=== PATIENT | male | born 1980 | race Caucasian/White ===

== ENCOUNTER 2019-07-12 00:58 | Emergency (ER) | payer OTHER ==
[2019-07-12] MEDS ORDERED: Acetaminophen-Codeine 300-30mg TAB PO STA (01:43)
--- NOTE | 2019-07-12 02:17 | XR ---
EXAM: XR Cervical Spine, 2 or 3 Views CLINICAL HISTORY: ITS.REASON XR Reason: fall TECHNIQUE: Frontal and lateral views of the cervical spine. COMPARISON: No relevant prior studies available. FINDINGS: Vertebrae: No definite fracture. Normal alignment. Disc spaces: Mild disc height loss at the C5-6 and C6-7. Soft tissues: Unremarkable. IMPRESSION: No acute osseous findings.
--- NOTE | 2019-07-12 02:35 | ED ---
General Adult HPI - General Chief complaint: Extremity Injury, Upper Stated complaint: Arm Pain Time Seen by Provider: 07/12/19 01:13 Source: patient Mode of arrival: ambulatory Limitations: no limitations - History of Present Illness Initial comments: Patient is a 39-year-old male presenting to emergency Department with a chief complaint of right arm pain. Patient reports he fell approximately 2 weeks ago when walking down the stairs. Patient denies any head trauma. Patient reports over the last week he has developed a shooting pain that starts near the right trapezius and travels down to the right shoulder along the triceps and the posterior aspect of the right forearm. Patient also reports intermittent tingling but no numbness. Patient has full range of motion in all the joints of her right arm. Patient reports no specific motion or position makes it worse. Patient reports taking [id number] analgesics minimal improvement. - Related Data Allergies Allergy/AdvReac Type Severity Reaction Status Date / Time No Known Allergies Allergy Verified 07/12/19 01:11 Review of Systems ROS Statement: Those systems with pertinent positive or pertinent negative responses have been documented in the HPI. ROS Other: All systems not noted in ROS Statement are negative. Past Medical History Past Medical History: No Reported History History of Any Multi-Drug Resistant Organisms: None Reported Past Surgical History: No Surgical Hx Reported Past Psychological History: No Psychological Hx Reported Smoking Status: Never smoker Past Alcohol Use History: None Reported Past Drug Use History: Marijuana General Exam Limitations: no limitations General appearance: alert, in no apparent distress Head exam: Present: atraumatic, normocephalic, normal inspection Eye exam: Present: normal appearance, PERRL, EOMI Pupils: Present: normal accommodation ENT exam: Present: normal exam, normal oropharynx, mucous membranes moist, TM's normal bilaterally, normal external ear exam Neck exam: Present: normal inspection, full ROM Respiratory exam: Present: normal lung sounds bilaterally Cardiovascular Exam: Present: regular rate, normal rhythm, normal heart sounds Extremities exam: Present: normal inspection, full ROM, normal capillary refill, other (+2 ulnar and radial pulses bilaterally. Right upper extremity neurovascularly intact.). Absent: tenderness Back exam: Present: normal inspection, full ROM Neurological exam: Present: alert, oriented X3 Psychiatric exam: Present: normal affect, normal mood Skin exam: Present: warm, intact, normal color Course Vital Signs 07/12/19 01:10 Temperature 98.4 F Pulse Rate 86 Respiratory 20 Rate Blood Pressure 142/87 O2 Sat by Pulse 99 Oximetry Medical Decision Making - Medical Decision Making Patient is a 39-year-old male presenting to the emergency department with a chief complaint of right arm pain. Patient reports the pain began approximately one week ago and he thinks it is due to a fall that took place approximately 2 weeks ago when he was walking on the stairs. Patient had no head trauma. Patient has numbness and tingling that starts at the right trapezius and radiates distally along the shoulder triceps in the posterior aspect of her right forearm. Patient has full range of motion and is neurovascularly intact in the right upper extremity. Cervical x-rays unremarkable. I suspect the patient to have cervical radiculopathy which is causing his symptoms. Patient advised to follow with orthopedics if symptoms are not improved. Patient will be given a Tylenol 3 starter pack. Patient advised not to drive or operate heavy machinery when taking the medication. Strict return parameters were thoroughly discussed the patient was understanding and agreeable. Case discussed with physician. Disposition Clinical Impression: Cervical radiculopathy Disposition: HOME SELF-CARE Condition: Stable Instructions (If sedation given, give patient instructions): Cervical Radiculopathy (ED) Additional Instructions: Alternate between Tylenol and ibuprofen for pain control. Please follow with orthopedics. Please return to emergency department is symptoms worsen. Is patient prescribed a controlled substance at d/c from ED?: No Referrals: None,Stated [Primary Care Provider] - 1-2 days Zhen Pedro MD [STAFF PHYSICIAN] - 1-2 days Time of Disposition: 02:42
[2019-07-12] MEDS ORDERED: ACET/COD 300 MG/30 MG STARTER PACK 6 TAB BTL PO STA (02:37)
[2019-07-12] MEDS ORDERED: CYCLOBENZAPRINE 10MG STARTER 3 TAB BTL PO STA (02:48)
[2019-07-12 02:57] VITALS: BP 140/85; PULSE 80; RESP 19; TEMP 98.3
== END 2019-07-12 02:57 | disposition home or self-care (01) ==
LOC: EC 00:58
DX: M54.12 Radiculopathy, cervical region (principal); S49.91XA Unspecified injury of right shoulder and upper arm, initial encounter; W10.9XXA Fall (on) (from) unspecified stairs and steps, initial encounter; Y93.01 Activity, walking, marching and hiking
CPT/HCPCS: 72050; 99283